=== PATIENT | female | born 1960 | race Caucasian/White ===

== ENCOUNTER → 2018-03-25 | Outpatient (REF) | payer BC ==
[~2018-03-25] MED LIST: ASPI-692 PO; CALC-852 PO; DOCU-416 PO; ESTR1PAT69 TD; HYDR-317 PO; IBUP-1671 PO; MULT-1038 PO; ONDA4TAB PO; OXYB10TA16 PO; OXYB10TA21 PO; OXYC-865 PO; PER PO; PHEN200T32 PO; POTA25TA28 PO; PYRA500T32 PO; SULF-198 PO; TAMS0.4C25 PO; VALS40TA7 PO
== END ==
LOC: ZZSENDIN 16:45
PROVIDERS: ATTEND Urology
DX: N39.0 Urinary tract infection, site not specified (principal); R82.79 Other abnormal findings on microbiological examination of urine
CPT/HCPCS: 87088

== ENCOUNTER → 2018-03-25 | Outpatient (CLI) | payer BC ==
--- NOTE | 2018-03-25 10:58 | RADIOLOGY IMAGING REPORT ---
FACILITY: [facility] PATIENT NAME: Graciela Holloway : 1960 MR: [id number] V: [id number] EXAM DATE: ORDERING PHYSICIAN: CLAIR GARCIA TECHNOLOGIST: Location: [facility] [place] Patient: Graciela Holloway : 1960 Visit/Account:[id number] Date of Sevice: 03/25/2018 EXAMINATION: CT abdomen without IV contrast CT pelvis without IV contrast HISTORY: Kidney stones. TECHNIQUE: Spiral scan was through the abdomen and pelvis without intravenous contrast. Sagittal a nd coronal reformatted images are also submitted. One of the following dose optimization techniques was utilized in the performance of this exam: Autom ated exposure control; adjustment of the mA and/or kV according to the patient's size; or use of an i terative reconstruction technique. Specific details can be referenced in the facility's radiology C T exam operational policy. COMPARISON: 01/25/2017. 01/21/2013. FINDINGS: Lower chest: Negative. Please note that without intravenous contrast, sensitivity to detection of parenchymal disease is morgan ited. Liver / biliary: Cholecystectomy. Otherwise negative. Pancreas: Negative. Spleen: Negative. Adrenal glands: Negative. Kidneys: Multifocal renal scarring with multiple small nonobstructing stones measuring up to 3 mm. L obular contours of both kidneys is similar compared with prior exams. No hydronephrosis. Pelvic structures: Hysterectomy. Otherwise negative. Bowel: Negative. Peritoneum / retroperitoneum / mesenteries: Negative. Vessels: Mild aortoiliac calcification without aneurysm. Lymph nodes: Negative. Musculoskeletal / Body wall: Mild degenerative changes in the spine. No aggressive osseous lesions. IMPRESSION: 1. No acute abnormality in the abdomen or pelvis. 2. Multiple nonobstructing kidney stones measuring up to 3 mm. 3. Stable multifocal renal scarring and lobular contours of both kidneys. This is not significantly changed dating back to 01/21/2013. Report Dictated By: Alexandre Jacobs MD at 03/25/2018 10:45 AM Report E-Signed By: Alexandre Jacobs MD at 03/25/2018 10:55 AM WSN:[email or web address]
== END ==
LOC: CT 01:09
PROVIDERS: ATTEND Urology
DX: N20.0 Calculus of kidney (principal)
CPT/HCPCS: 74176